=== PATIENT | female | born 2005 | race Two or more races ===

== ENCOUNTER → 2024-02-11 | Emergency (ER) | payer OTHER ==
[~2024-02-11] VITALS: Ht 162.6 cm; Wt 55.2 kg
[2024-02-11 21:45] VITALS: BP 102/62; PULSE 75; RESP 17; O2SAT 97
== END | disposition left against medical advice (07) ==
LOC: ER 21:38
DX: R10.9 Unspecified abdominal pain (principal); R11.2 Nausea with vomiting, unspecified; Z53.21 Procedure and treatment not carried out due to patient leaving prior to being seen by health care provider